=== PATIENT | male | born 1980 | race African-American/Black ===

== ENCOUNTER 2017-10-30 16:30 | Emergency (ER) | payer SELFPAY ==
[2017-10-30] MEDS: IBUPROFEN 600 MG TAB PO (19:38)
== END 2017-10-30 20:44 | disposition home or self-care (01) ==
LOC: FTE 16:30
DX: S80.812A Abrasion, left lower leg, initial encounter (principal); V49.40XA Driver injured in collision with unspecified motor vehicles in traffic accident, initial encounter
CPT/HCPCS: 72040; 99283-25

== ENCOUNTER 2018-08-13 13:22 | Emergency (ER) | payer MEDICAID ==
[2018-08-13] MEDS: DEXAMETHASONE 10 MG/ML 1 ML INJ IM (14:34)
[2018-08-13] MEDS: KETOROLAC 60 MG INJ IM (14:34)
== END 2018-08-13 15:33 | disposition home or self-care (01) ==
LOC: FTE 13:22
DX: J01.90 Acute sinusitis, unspecified (principal)
CPT/HCPCS: 96372; 99284-25; J1100